=== PATIENT | female | born 1995 | race Caucasian/White ===

== ENCOUNTER 2024-09-18 07:55 | Outpatient (CLI) | payer OTHER | END 2024-09-18 07:56 | disposition home or self-care (01) | LOC: BICMRI 07:55 | PROVIDERS: ATTEND Otolaryngology | DX: H90.42 Sensorineural hearing loss, unilateral, left ear, with unrestricted hearing on the contralateral side (principal); R42 Dizziness and giddiness | CPT/HCPCS: 70553 ==